=== PATIENT | female | born 2000 | race Caucasian/White ===

== ENCOUNTER 2022-10-03 14:49 | Emergency (ER) | payer OTHER, SELFPAY ==
[2022-10-03 14:58] VITALS: BP 110/65; PULSE 98; RESP 18; TEMP 36.6; O2SAT 99
[2022-10-03 15:23] LABS: Basophils Percent Auto 0.5 % (0.2-1.2); Hemoglobin 13.4 g/dL (12.0-15.0); Immature Granulocyte Absolute 0.03 K/mm3 (0.00-0.031); Immature Granulocyte Percent A 0.4 % (0-0.5); Lymphocytes Absolute Auto 0.51 K/mm3 (0.9-3.2); Lymphocytes Percent Auto 6.9 % (18.3-44.2); Mean Corpuscular HGB Conc 33.5 g/dl (32-36); Mean Corpuscular Hemoglobin 27.6 pg (26-34); Mean Corpuscular Volume 82.5 fl (80-100); Mean Platelet Volume 10.2 fl (7.4-10.4); Monocytes Absolute Auto 0.6 K/mm3 (0.1-0.6); Neutrophils Absolute Auto 6.2 K/mm3 (1.3-6.7); Neutrophils Percent Auto 84.2 % (45.5-73.1); Platelet Count Result 225 k/mm3 (150-375); Red Blood Count 4.85 M/mm3 (4.2-5.4); Red Cell Distribution Width 12.3 % (11.5-14.5); White Blood Count 7.4 K/mm3 (4.5-10.0)
[2022-10-03 15:35] LABS: Alanine Aminotransferase 38 U/L (6-35); Albumin Level 4.6 g/dL (3.5-5.1); Alkaline Phosphatase 70 U/L (38-126); Anion Gap 6 mmol/L (8-16); Aspartate Amino Transferase 32 U/L (14-36); Bilirubin,Total 0.9 mg/dL (0.2-1.3); Blood Urea Nitrogen 11 mg/dL (7-17); Calcium 8.8 mg/dL (8.4-10.2); Carbon Dioxide 29 mmol/L (22-30); Chloride 101 mmol/L (98-107); Estimated CRCL calculation 104 ml/min; Estimated Glomerular Filt Rate > 60; Glucose 99 mg/dL (65-110); Lipase 20 U/L (23-300); Potassium 3.8 mmol/L (3.4-5.0); Sodium 136 mmol/L (137-145)
[2022-10-03 17:27] LABS: Appearance Urine Clear (Clear); Bilirubin Urine Negative (Negative); Blood Urine Negative (Negative); Color Urine Yellow (Yellow); Glucose Urine UA Negative (Negative); Ketones Urine Trace mg/dL (Negative); Leukocyte Esterase Ur Negative LEU/UL (Negative); Nitrate Urine Negative (Negative); Protein Urine 1+ mg/dL (Negative); Urobilinogen Urine 0.2 mg/dL (<2.0); pH Urine 6.5 (5.0-9.0)
[2022-10-03 17:33] LABS: Add Urine Microscopic? YES; Bacteria Urine Trace /hpf; Mucus Urine Moderate /lpf; Squamous Epithelial Cell Urine Few /hpf (Few); WBC Urine 0-3 /hpf
--- NOTE | 2022-10-03 17:33 | ED.NAVMDI ---
HPI - Nausea/Vomiting/Diarrhea General Chief complaint: Nausea/Vomiting/Diarrhea Stated complaint: N/V SINCE LAST NIGHT. +FEVER Time Seen by Provider: 10/03/22 17:08 History of Present Illness HPI Narrative: Patient is a 22-year-old female here for evaluation of nausea and vomiting over the past 12 hours. Patient states that she has been unable to tolerate any p.o. Does report a fever of 100.1 yesterday that did come down after she took p.o. Tylenol. No sick contacts, new or suspicious foods. No diarrhea, constipation, abdominal pain, dysuria, urgency, vaginal discharge. Denies history of surgeries on her abdomen. Related Data Allergies Allergy/AdvReac Type Severity Reaction Status Date / Time No Known Allergies Allergy Verified 10/03/22 17:57 Review of Systems Review of Systems: Gen: Denies fevers or chills Eyes: Denies eye pain or visual change ENT: Denies congestion Respiratory: Denies shortness of breath or cough CV: Denies chest pain or palpitations GI: Reports nausea, vomiting. Denies abdominal pain or diarrhea : denies burning, urgency, frequency or hematuria Musculoskeletal: Denies back pain or muscle pain Neuro: Denies numbness, tingling, weakness or focal weakness Skin: Denies rash Except as documented, all other systems reviewed and negative Exam Narrative: APPEARANCE: Well appearing, no pain in distress, well-nourished. Head: Normocephalic and atraumatic. EYES: PERRLA/EOMI, conjunctivae clear NOSE: No nasal drainage EARS: External ear normal in appearance THROAT: Oropharynx is clear. Mucous membranes are moist. NECK: Supple. No adenopathy, no masses. RESPIRATORY: Airway patent, respirations nonlabored. Clear to auscultation bilaterally, no rales, rhonchi, wheezing. CARDIOVASCULAR: Regular rate and rhythm without murmurs, rubs, or gallops. ABDOMINAL: Normoactive bowel sounds. Soft, nontender, nondistended. No rebound tenderness or guarding. MUSCULOSKELETAL: Extremities are warm and well-perfused. Moves all extremities well. No edema. NEURO: Normal speech. No focal neurologic deficits. SKIN: Skin is warm and dry. No rashes. PSYCHIATRIC: Normal affect/mood. Course Vital Signs Vital signs: Vital Signs Temperature 97.9 F 10/03/22 14:58 Pulse Rate 98 10/03/22 14:58 Respiratory Rate 18 10/03/22 14:58 Blood Pressure 110/65 10/03/22 14:58 Pulse Oximetry 99 10/03/22 14:58 Oxygen Delivery Room Air 10/03/22 14:58 Temperature 97.9 F 10/03/22 14:58 Pulse Rate 94 10/03/22 18:38 Respiratory Rate 16 10/03/22 18:38 Blood Pressure 121/78 10/03/22 18:38 Pulse Oximetry 100 10/03/22 18:38 Oxygen Delivery Room Air 10/03/22 14:58 MDM - Nausea/Vomiting/Diarrhea MDM Narrative Medical decision making narrative: Patient is a healthy 22-year-old female here for evaluation of nausea and vomiting over the past day, unable to tolerate p.o. She is nontoxic in appearance and has normal vital signs. No abdominal tenderness on exam. Basic labs unremarkable, low normal lipase. test is negative. patient was given fluids and nausea medicine with marked improvement of her symptoms, able to tolerate p.o. and feels ready to go home. Likely gastroenteritis versus gastritis. No indication for imaging at this time, will discharge home with antinausea medicine. We discussed return precautions and she voiced understanding. Lab Data 10/03/22 15:08 10/03/22 15:08 Labs: Lab Results 10/03/22 10/03/22 10/03/22 Range/Units 15:08 15:08 17:21 WBC 7.4 (4.5-10.0) K/mm3 RBC 4.85 (4.2-5.4) M/mm3 Hgb 13.4 (12.0-15.0) g/dL Hct 40.0 (37.0-47.0) % MCV 82.5 (80-100) fl MCH 27.6 (26-34) pg MCHC 33.5 (32-36) g/dl RDW 12.3 (11.5-14.5) % Plt Count 225 (150-375) k/mm3 MPV 10.2 (7.4-10.4) fl Immature Gran % (Auto) 0.4 (0-0.5) % Neut % (Auto) 84.2 H (45.5-73.1) % Lymph % (Auto) 6.9 L (18.3-44.2) %
[2022-10-03] MEDS: FAMOTIDINE 20 MG/2 ML VIAL IV PUSH (17:40)
[2022-10-03] MEDS: LACTATED RINGERS 1,000 ML 999 ML IV CONT (17:40)
[2022-10-03] MEDS: Please add drug allergy info to patient profile. 1 EACH XX (17:40)
[2022-10-03] MEDS: ONDANSETRON INJ 4 MG/2 ML VIAL IV PUSH (17:40)
[2022-10-03 18:09] LABS: Pregnancy On Board Control Positive; Urine Pregnancy Test Negative
[2022-10-03 18:38] VITALS: BP 121/78; PULSE 94; RESP 16; O2SAT 100
--- NOTE | 2022-10-03 18:39 | PC.NURSE ---
pt re-assessed. pt states she feels better. pt given water for a PO challenge.
== END 2022-10-03 19:03 | disposition home or self-care (01) ==
PROVIDERS: Emergency Medicine; Emergency Provider Physician Assistant
DX: K52.9 Noninfective gastroenteritis and colitis, unspecified (principal)
CPT/HCPCS: 36415; 80053; 81001; 81025; 83690; 85025; 96361; 96374; 96375; 99284; J2405; J7120